=== PATIENT | male | born 1995 | race Caucasian/White ===

== ENCOUNTER 2023-10-20 11:54 | Emergency (ER) | payer SELFPAY ==
[2023-10-20 13:02] VITALS: BP 156/98; PULSE 91; RESP 17; TEMP 37; O2SAT 98; BMI 24.4
[2023-10-20] MEDS: lidocaine 2% viscous 15 mL UDC 10 ML TOPICAL (13:51)
[2023-10-20] MEDS: dexamethasone 10 mg/mL INJ IM (13:51)
[2023-10-20] MEDS: HYDROcodone-acetaminophen 7.5-325 mg Tablet 1 TAB PO (13:51)
--- NOTE | 2023-10-20 13:52 | W.ED.DENTAL ---
HPI - Dental/Oral General: Chief complaint: Dental/Oral Stated complaint: Jaw Pain/Swelling Time Seen by Provider: 10/20/23 13:10 Source: patient Mode of arrival: ambulatory Limitations: no limitations History of Present Illness: Patient is a 28-year-old male presenting to the emergency department complaining of dental pain onset past few days. History of poor dentition, does not see a dentist regularly, states that he has pain to the left lower jaw that is radiating to his left face up towards his left ear. Pain worsens with swallowing, palpation, and cool liquids. No fever, nausea or vomiting, or other symptoms reported at this time. MD Complaint: tooth pain Onset (ago): day(s) Duration: constant Severity: severe Relieving factors: nothing Exacerbating factors: chewing, cold and swallowing Context: history of dental caries and poor dental care Associated symptoms: Reports ear or mastoid pain; Denies fever(s) Treatment prior to arrival: none Related Data Previous Rx's Medication Instructions Recorded amoxicillin 875 mg-potassium 1 tab PO BID 10 days #20 tabs 10/20/23 clavulanate 125 mg tablet lidocaine HCl 2 % mucosal solution 10 ml mucous membrane Q4H PRN pain 10/20/23 (Lidocaine Viscous) #100 mL prednisone 20 mg tablet 60 mg (3 x 20 mg) PO ONCE 5 days 10/20/23 #15 tabs Allergies Allergy/AdvReac Type Severity Reaction Status Date / Time No Known Allergies Allergy Verified 10/20/23 13:04 Review of Systems General: Reports: 10 or more systems reviewed and unremarkable except in HPI and below Const: Denies: fever(s), chills or fatigue Eyes: Denies: change in vision ENMT: Reports: dental pain, ear or mastoid pain and sinus pain Card: Denies: chest pain, palpitations, swelling of feet/ankles or lightheadedness Resp: Denies: dyspnea, productive cough or wheezing GI: Denies: abdominal pain, nausea, vomiting, diarrhea or constipation : Denies: flank pain, difficulty urinating, dysuria or urinary frequency Musc: Denies: neck pain, back pain or joint pain Skin/Breast: Denies: rash Neuro: Denies: headache(s), numbness in extremities or weakness in extremities Physical Exam Const: COMMON NORMALS: no acute distress and no limitations GENERAL APPEARANCE: cooperative, comfortable and well developed ORIENTATION/CONSCIOUSNESS: Yes awake HENMT: COMMON NORMALS: normocephalic, atraumatic and hearing grossly normal bilaterally HEAD & SCALP: normocephalic and atraumatic MOUTH: Normal oral and palatal mucosa present, lip normal and tongue normal TEETH & GINGIVA: Yes abnormal tooth and associated gingiva lower left tender, with associated gingival edema and enamel fractured, Yes multiple restorations and Yes poor dentition Eye: COMMON NORMALS: Equal, round and reactive pupils present, EOMs intact bilaterally and conjunctivae normal CONJUNCTIVA: Yes conjunctivae normal PUPIL: Yes Equal, round and reactive pupils present Neck/C-Spine: COMMON NORMALS: full ROM, supple and no JVD Resp: COMMON NORMALS: normal respiratory effort, No retractions, No use of accessory muscles and clear to auscultation bilaterally AUSCULTATION: clear to auscultation bilaterally Cardio: COMMON NORMALS: no JVD, regular rate, regular rhythm, No clicks present (Cardio), No murmurs present (Cardio) and No rub (Cardio) RATE: regular rate RHYTHM: regular rhythm Extremity: COMMON NORMALS: normal to inspection, full ROM and capillary refill normal Skin: COMMON NORMALS: no rashes or lesions noted GENERAL SKIN EXAM: no rashes or lesions noted Course Vital Signs: Vital signs: Vital Signs Temperature 98.6 F 10/20/23 13:02 Pulse Rate 91 10/20/23 13:02 Respiratory Rate 17 10/20/23 13:02 Blood Pressure 156/98 10/20/23 13:02 Pulse Oximetry 98 10/20/23 13:02 Oxygen Delivery Me thod Room Air 10/20/23 13:02 MDM - Dental/Oral Medical Decision Making Patient presented with clinical signs and symptoms of a dental abscess to the left lower dentition. History of poor dentition and no dental care, we will treat with antibiotics and he is given a shot of steroids here in the emergency department. He is also given 1 [place] tablet for pain relief, and will prescribe viscous lidocaine as well as steroids to take at home along with antibiotics. He is informed to follow-up with dentist for further care, as these teeth will likely need to be pulled. Strict return precautions given. No radiology studies performed this visit Discharge Plan Discharge Patient Disposition: Home Clinical Impression: Dental abscess Fracture of tooth Qualifiers: Encounter type: initial encounter Fracture type: closed Qualified Code(s): S02.5XXA - Fracture of tooth (traumatic), initial encounter for closed fracture Condition: Stable Prescriptions: New amoxicillin-pot clavulanate 875-125 mg tablet 1 tab PO BID 10 Days Qty: 20 0RF Lidocaine Viscous 2 % solution 10 ml mucous membrane Q4H PRN (Reason: pain) Qty: 100 0RF prednisone 20 mg tablet 60 mg PO ONCE 5 Days Qty: 15 0RF Discontinued prednisone 20 mg tablet 40 mg PO DAILY 5 Days Qty: 10 0RF Rx Instructions: start on 08/19/23 amoxicillin-pot clavulanate 875-125 mg tablet 1 tab PO BID Qty: 14 0RF Discharge Orders: Discharge ED (Routine); Ordered 10/20/23 Ordered By: Leif Charles Discharge Diet: Usual diet Discharge Activity: Increase activity as tolerated Patient Instructions: Dental Abscess (ED) Activity Restrictions/Additional Instructions: Antibiotics and steroids as prescribed. Topical lidocaine for pain relief. Tylenol and ibuprofen at home. Please call dentist on Sunday to schedule an appointment. Return with any new or worsening. Coding Level of Care Code ED Information Systems Auditor for Jame Rivera
[2023-10-20 13:58] VITALS: BP 151/96; PULSE 89; RESP 16; TEMP 37; O2SAT 99
== END 2023-10-20 13:59 | disposition home or self-care (01) ==
PROVIDERS: Emergency Provider Physician Assistant
DX: S02.5XXA Fracture of tooth (traumatic), initial encounter for closed fracture (principal); X58.XXXA Exposure to other specified factors, initial encounter
CPT/HCPCS: 96372; 99284; J1100

== ENCOUNTER 2023-10-23 09:33 | Emergency (ER) | payer SELFPAY ==
[2023-10-23 09:52] VITALS: BP 134/96; PULSE 112; TEMP 36.8; O2SAT 97
--- NOTE | 2023-10-23 10:06 | W.ED.SKABFB ---
Documented by User: LANI Jameson 10/23/23 10:23 HPI - Skin/Abscess/Foreign Bdy General: Chief complaint: Skin/Abscess/Foreign Body Stated complaint: possible allergic reaction Time Seen by Provider: 10/23/23 09:34 Source: patient Mode of arrival: ambulatory Limitations: no limitations History of Present Illness: Patient is a 28-year-old male presents to ED today for evaluation of a rash to the left side of his face and concern for possible allergic reaction. Patient was seen in our facility on 10/19 for a dental infection and started on amoxicillin. He states he did have the bothersome tooth pulled yesterday at the dental office. He states he began noticing the rash slightly yesterday but it has significantly worsened today affecting the left side of his face, ear, and tongue. States rash and ear are exquisitely tender. MD complaint: rash Onset (ago): day(s) (yesterday) Tetanus up to date: yes Location: face Severity: severe Severity scale (1-10): 10 Quality: burning and sharp Pain Consistency: constant Relieving factors: none Exacerbating factors: none Context: new medication Associated symptoms: Reports other (ear pain); Deny chills, fever(s), nausea or vomiting Treatments prior to arrival: corticosteroid and antibiotic Related Data Previous Rx's Medication Instructions Recorded amoxicillin 875 mg-potassium 1 tab PO BID 10 days #20 tabs 10/20/23 clavulanate 125 mg tablet lidocaine HCl 2 % mucosal solution 10 ml mucous membrane Q4H PRN pain 10/20/23 (Lidocaine Viscous) #100 mL hydrocodone 5 mg-acetaminophen 325 1 - 2 tab PO .q 4-6 PRN pain #20 10/23/23 mg tablet tabs prednisone 10 mg tablet 60 mg (6 x 10 mg) PO DAILY 5 days 10/23/23 #30 tabs valacyclovir 1 gram tablet 1,000 mg PO Q8H 10 days #30 tabs 10/23/23 Allergies Allergy/AdvReac Type Severity Reaction Status Date / Time No Known Allergies Allergy Verified 10/20/23 13:04 Review of Systems Const: Denies: fever(s), chills, body aches, fatigue or malaise Eyes: Denies: change in vision, blurry vision, photophobia, floaters or seeing flashes ENMT: Reports: ear or mastoid pain and sinus pain; Denies: ear discharge, change in hearing, tinnitus, disequilibrium, nasal discharge or nasal congestion Card: Denies: chest pain Resp: Denies: dyspnea GI: Denies: abdominal pain, nausea, vomiting or diarrhea Musc: Denies: neck pain, back pain, extremity pain or joint pain Skin/Breast: Reports: rash Neuro: Denies: headache(s), numbness in extremities, weakness in extremities or sensory changes Physical Exam Const: COMMON NORMALS: average body habitus, patient oriented x3, no limitations, healthy appearing, alert and well nourished GENERAL APPEARANCE: cooperative and in distress (appears uncomfortable secondary to pain) HENMT: COMMON NORMALS: normocephalic, atraumatic and Normal external nose present HEAD & SCALP: normal to inspection, normocephalic and atraumatic FACE & SINUS: other (vesicular rash involving L face and L EAC) NOSE: Normal external nose present EXTERNAL EAR: Yes other (posterior auricular adenopathy L ear) EXTERNAL AUDITORY CANAL: other (vesicular lesions) TYMPANIC MEMBRANE: TM abnormal MOUTH: lip normal TEETH & GINGIVA: Yes caries and Yes other (dental extraction site appears normal) THROAT: posterior oropharynx normal and tonsils normal Eye: COMMON NORMALS: Equal, round and reactive pupils present and EOMs intact bilaterally GENERAL EYE: appearance normal, both eyes and all related structures and normal light reflex PUPIL: Yes Equal, round and reactive pupils present DIRECT OPHTHALMOSCOPY: Yes normal light reflex Neck/C-Spine: COMMON NORMALS: full ROM and no lymphadenopathy GENERAL: Yes normal visual inspection Resp: COMMON NORMALS: normal respiratory effort and clear to auscultation bilaterally AUSCULTATION: clear to auscultation bilaterally Cardio: COMMON NORMALS: regular rate and regular rhythm RATE: regular rate RHYTHM: regular rhythm Neuro: [place]DE[place] COMA SCALE: document GCS findings [place] coma scale eye opening: Spontaneous [place] coma scale verbal response: Orientated [place] coma scale motor response: Obey commands [place] coma scale total score: 15 COMMON NORMALS: patient oriented x3, CN's II-XII intact bilaterally, moves all extremities, no focal motor deficits and no sensory deficits noted SENSORIUM/ORIENTATION: Yes alert Skin: NARRATIVE SKIN EXAM: 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 Dr. Hale also evaluated patient. Patient will be placed on Valtrex 1g TID daily x 10 days and Prednisone and given pain medications. Will have him follow up with ENT. Return precautions given. Differential Diagnosis Likely herpes zoster Medical Records I reviewed the patient's medical records. 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) Condition: Stable Prescriptions: New valacyclovir 1 gram tablet 1,000 mg PO Q8H 10 Days Qty: 30 0RF prednisone 10 mg tablet 60 mg PO DAILY 5 Days Qty: 30 0RF hydrocodone-acetaminophen 5-325 mg tablet 1 - 2 tab PO .q 4-6 PRN (Reason: pain) Qty: 20 0RF Discontinued prednisone 20 mg tablet 60 mg PO ONCE 5 Days Qty: 15 0RF No Action amoxicillin-pot clavulanate 875-125 mg tablet 1 tab PO BID 10 Days Qty: 20 0RF Lidocaine Viscous 2 % solution 10 ml mucous membrane Q4H PRN (Reason: pain) Qty: 100 0RF Discharge Orders: Discharge ED (Routine); Ordered 10/23/23 Ordered By: Linda Khanna Patient Instructions: Shingles (ED), Opioid Safety, Pain Management Activity Restrictions/Additional Instructions: You were given medications prior to discharge here. You will be due for another dose of your valacyclovir later this evening. You may start your prescription prednisone tomorrow as you are already given today's dose prior to discharge. You may use the pain medications as needed for significant discomfort. Case management should reach out to you this week to help set you up with your follow-up ENT appointment. You may also follow-up with primary care in the meantime. You may return to the emergency department for worsening or uncontrollable pain, worsening rash, severe headache/neck pain, altered mental status, fevers, or any other concerns you may have. Stand Alone Forms: Work/School Release Coding Level of Care Code ED Building Operator for Chg Fwd Documented by User: Tristian Hale DO 10/23/23 12:16 HPI - Skin/Abscess/Foreign Bdy General: Chief complaint: Skin/Abscess/Foreign Body Stated complaint: possible allergic reaction Time Seen by Provider: 10/23/23 09:34 Related Data Previous Rx's Medication Instructions Recorded amoxicillin 875 mg-potassium 1 tab PO BID 10 days #20 tabs 10/20/23 clavulanate 125 mg tablet lidocaine HCl 2 % mucosal solution 10 ml mucous membrane Q4H PRN pain 10/20/23 (Lidocaine Viscous) #100 mL hydrocodone 5 mg-acetaminophen 325 1 - 2 tab PO .q 4-6 PRN pain #20 10/23/23 mg tablet tabs prednisone 10 mg tablet 60 mg (6 x 10 mg) PO DAILY 5 days 10/23/23 #30 tabs valacyclovir 1 gram tablet 1,000 mg PO Q8H 10 days #30 tabs 10/23/23 Allergies Allergy/AdvReac Type Severity Reaction Status Date / Time No Known Allergies Allergy Verified 10/20/23 13:04 Physical Exam Neuro: [place]DE[place] COMA SCALE: document GCS findings [place] coma scale total score: 15 Course Vital Signs: Vital signs: Vital Signs Temperature 98.2 F 10/23/23 09:52 Pulse Rate 93 10/23/23 11:23 Blood Pressure 163/93 10/23/23 11:23 Pulse Oximetry 96 10/23/23 11:23 Oxygen Delivery Me thod Room Air 10/23/23 10:52 MDM - Skin/Abscess/Foreign Bdy Medicial Decision Making 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 Dr. Hale also evaluated patient. Patient will be placed on Valtrex 1g TID daily x 10 days and Prednisone and given pain medications. Will have him follow up with ENT. Return precautions given. Midlevel review. Patient seen in conjunction with Linda Khanna. Agree with assessment patient does have a vesicular rash consistent with varicella specifically Alejandro Sorto syndrome there is vesicles within the ear canal. At this point I believe he can be treated as an outpatient start him on prednisone as well as valacyclovir. 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) Condition: Stable Prescriptions: New valacyclovir 1 gram tablet 1,000 mg PO Q8H 10 Days Qty: 30 0RF prednisone 10 mg tablet 60 mg PO DAILY 5 Days Qty: 30 0RF hydrocodone-acetaminophen 5-325 mg tablet 1 - 2 tab PO .q 4-6 PRN (Reason: pain) Qty: 20 0RF Discontinued prednisone 20 mg tablet 60 mg PO ONCE 5 Days Qty: 15 0RF No Action amoxicillin-pot clavulanate 875-125 mg tablet 1 tab PO BID 10 Days Qty: 20 0RF Lidocaine Viscous 2 % solution 10 ml mucous membrane Q4H PRN (Reason: pain) Qty: 100 0RF Discharge Orders: Discharge ED (Routine); Ordered 10/23/23 Ordered By: Linda Khanna Patient Instructions: Shingles (ED), Opioid Safety, Pain Management Activity Restrictions/Additional Instructions: You were given medications prior to discharge here. You will be due for another dose of your valacyclovir later this evening. You may start your prescription prednisone tomorrow as you are already given today's dose prior to discharge. You may use the pain medications as needed for significant discomfort. Case management should reach out to you this week to help set you up with your follow-up ENT appointment. You may also follow-up with primary care in the meantime. You may return to the emergency department for worsening or uncontrollable pain, worsening rash, severe headache/neck pain, altered mental status, fevers, or any other concerns you may have. Stand Alone Forms: Work/School Release Coding Level of Care Code ED Building Operator for Jame Rivera
[2023-10-23] MEDS: ondansetron 2 mg/ML SDV 2 mL 4 MG IM (10:45)
[2023-10-23] MEDS: predniSONE 20 mg Tablet 70 MG PO (10:47)
[2023-10-23] MEDS: valACYclovir 1,000 mg Tablet 1000 MG PO (10:47)
[2023-10-23] MEDS: morphine 4 mg/mL SDV 1 mL IM (10:50)
[2023-10-23 10:52] VITALS: BP 152/98; PULSE 102; O2SAT 98
[2023-10-23 11:23] VITALS: BP 163/93; PULSE 93; O2SAT 96
--- NOTE | 2023-10-25 07:51 | DCPLANNER ---
faxed referral to [facility] (ent)
== END 2023-10-23 11:24 | disposition home or self-care (01) ==
PROVIDERS: Emergency Provider Physician Assistant
DX: B02.21 Postherpetic geniculate ganglionitis (principal)
CPT/HCPCS: 96372; 99284; J2270; J2405; J7512

== ENCOUNTER 2024-07-31 07:10 | Emergency (ER) | payer SELFPAY ==
[2024-07-31 07:14] VITALS: BP 128/65; PULSE 71; RESP 16; TEMP 36.8; O2SAT 97; BMI 23.7
--- NOTE | 2024-07-31 07:20 | ED_ITS ---
HPI - Nausea/Vomiting/Diarrhea 2 General: Chief complaint: Nausea/Vomiting/Diarrhea Stated complaint: vomitting Time Seen by Provider: 07/31/24 07:14 History of Present Illness: 29-year-old male presents to the emergen cy room complaining of epigastric discomfort pain that began suddenly this morning when he first got up. Patient vomited once he went to work vomited 2 more times he denies any hematemesis or coffee-ground emesis. He has not had any previous episodes of upper GI bleed. Patient does not drink alcohol. No previous abdominal surgeries he still has some mild epigastric discomfort. Denies any recent antibiotics or new medications. Associated nausea: Yes Associated symtoms: Reports nausea; Denies chest pain or dysuria Related Data Previous Rx's ?Medication ?Instructions ?Recorded lidocaine HCl 2 % mucosal solution 10 ml mucous membra ne Q4H PRN pain 10/20/23 (Lidocaine Viscous) #100 mL hydrocodone 5 mg-acetaminophen 325 1 - 2 tab PO .q 4-6 PRN pain #20 10/23/23 mg tablet tabs promethazine 25 mg tablet 25 mg PO Q6H PRN nausea and 07/31/24 vomiting #20 tabs Allergies Allergy/AdvReac Type Severity Reaction Status Date / Time No Known Allergies Allergy Verified 10/20/23 13:04 Review of Systems 2 Const: Denies: fever(s) or chills Card: Denies: chest pain Resp: Denies: dyspnea GI: Reports: abdominal pain, nausea and vomiting; Denies: hematemesis, coffee ground emesis, diarrhea, hematochezia or melena : Denies: dysuria, urinary frequency or urinary urgency Musc: Denies: neck pain or back pain Skin/Breast: Denies: rash Physical Exam 2 Const: GENERAL APPEARANCE: cooperative ORIENTATION/CONSCIOUSNESS: Yes awake, Yes oriented to person, Yes oriented to place and Yes oriented to time HENMT: COMMON NORMALS: normocephalic, atraumatic and hearing grossly normal bilaterally HEAD & SCALP: normocephalic and atraumatic Resp: COMMON NORMALS: normal respiratory effort, No retractions, No use of accessory muscles and clear to auscultation bilaterally AUSCULTATION: clear to auscultation bilaterally Cardio: COMMON NORMALS: regular rate, regular rhythm and No murmurs present (Cardio) RATE: regular rate RHYTHM: regular rhythm GI: COMMON NORMALS: No hepatosplenomegaly present AUSCULTATION: Yes normoactive bowel sounds PALPATION: Yes Tenderness to palpation present (GI) (Nonspecific epigastrium, Lundy's negative), No Guarding due to palpation present (GI) and Yes No hepatosplenomegaly present Extremity: COMMON NORMALS: normal to inspection, capillary refill normal, no clubbing, cyanosis or edema, no calf tenderness and no pedal edema Neuro: SENSORIUM/ORIENTATION: Yes oriented to person, Yes oriented to place and Yes oriented to time Skin: COMMON NORMALS: no rashes or lesions noted GENERAL SKIN EXAM: no rashes or lesions noted Course 2 Vital Signs: Vital signs: Vital Signs Temperature 98.2 F 07/31/24 07:14 Pulse Rate 70 07/31/24 08:35 Respiratory Rate 16 07/31/24 07:14 Blood Pressure 128/65 07/31/24 07:14 Pulse Oximetry 98 07/31/24 08:35 Oxygen Delivery Me thod Room Air 07/31/24 07:14 MDM - Nausea/Vomiting/Diarrhea Medical Decision Making Labs show mild leukocytosis but otherwise are unremarkable. Patient's abdominal exam is benign will discharge home he is feeling better after the IV fluids. Clear good diet for 2 to 3 days advance as tolerated promethazine as needed follow-up as needed. Medical Records I reviewed the patient's medical records. Lab Data I reviewed the patient's lab results. 07/31/24 07:28 07/31/24 07:28 Laboratory Results WBC 12.62 10^3/uL (3.29-11.43) H 07/31/24 07:28 RBC 4.48 10^6/uL (3.85-5.65) 07/31/24 07:28 Hgb 14.20 g/dL (11.27-16.99) 07/31/24 07:28 Hct 43.3 % (37-53) 07/31/24 07:28 MCV 96.7 fl (82-101) 07/31/24 07:28 MCH 31.7 pg (27-33) 07/31/24 07: MCHC 32.8 g/dL (30-55) 07/31/24 07: RDW 12.0 % (12.1-15.1) L 07/31/24 07:28 Plt Count 341 10^3/cmm (157-399) 07/31/24 07:28 MPV 8.6 fL (7.4-10.4) 07/31/24 07: Neut % (Auto) 78.6 % 07/31/24 07: Lymph % (Auto) 15.9 % 07/31/24 07: Ida % (Auto) 4.4 % 07/31/24 07: Eos % (Auto) 0.6 % 07/31/24 07:28 Baso % (Auto) 0.3 % 07/31/24 07:28 Neut # (Auto) 9.92 10^3/uL (1.8-7.7) H 07/31/24 07: Lymph # (Auto) 2.0 10^3/uL (0.8-4.8) 07/31/24 07: Ida # (Auto) 0.6 10^3/uL (0.2-0.9) 07/31/24 07: Eos # (Auto) 0.1 10^3/uL (0.0-0.8) 07/31/24 07: Baso # (Auto) 0.0 10^3/uL (0.0-0.1) 07/31/24 07: Nucleated RBC % (auto) 0 % 07/31/24 07: Nucleated RBCs # 0.0 /100WBC 07/31/24 07:28 Sodium 141 mmol/L (136-145) 07/31/24 07: Potassium 4.2 mmol/L (3.5-5.1) 07/31/24 07: Chloride 104 mmol/L (98-107) 07/31/24 07: Carbon Dioxide 27 mmol/L (22-29) 07/31/24 07:28 Anion Gap 14.2 (5-19) 07/31/24 07: BUN 15 mg/dL (6-20) 07/31/24 07: Creatinine 0.9 mg/dL (0.7-1.2) 07/31/24 07:28 GFR Calculation 99.8 mL/min (90-130) 07/31/24 07: Glucose 99 mg/dL (65-115) 07/31/24 07:28 Calculated Osmolality 293 mOsm/kg (285-295) 07/31/24 07:28 Calcium 9.2 mg/dL (8.5-10.5) 07/31/24 07:28 Total Bilirubin 0.4 mg/dL (0.15-1.2) 07/31/24 07:28 AST 21 U/L (0-40) 07/31/24 07:28 ALT 31 U/L (0-41) 07/31/24 07:28 Alkaline Phosphatase 108 U/L (40-130) 07/31/24 07:28 Total Protein 6.9 g/dL (6.6-8.7) 07/31/24 07:28 Albumin 4.0 g/dL (3.5-5.2) 07/31/24 07: Globulin 2.9 g/dL (1.3-4.6) 07/31/24 07: Lipase 12 U/L (13-60) L 07/31/24 07:28 Urine Color Yellow (Yellow) 07/31/24 08:35 Urine Appearance Clear (CLEAR) 07/31/24 08:35 Urine pH 8.5 (5-7) A 07/31/24 08:35 Ur Specific [place] 1.022 (1.005-1.030) 07/31/24 08:35 Urine Protein Negative (Negative) 07/31/24 08:35 Urine Glucose (UA) Negative (Normal) 07/31/24 08:35 Urine Ketones Negative (Negative) 07/31/24 08:35 Urine Blood Negative (Negative) 07/31/24 08:35 Urine Nitrate Negative (Negative) 07/31/24 08:35 Urine Bilirubin Negative (Negative) 07/31/24 08:35 Urine Urobilinogen 1.0 mg/dL (Negative) 07/31/24 08:35 Ur Leukocyte Esterase Negative (Negative) 07/31/24 08:35 Urine RBC 0-2 /hpf (0-2) 07/31/24 08:35 Urine WBC 0-5 /hpf (0-5) 07/31/24 08:35 Ur Squamous Epith Cells 0-5 /hpf (0-5) 07/31/24 08:35 Amorphous Sediment Not Reportable 07/31/24 08:35 Urine Bacteria None seen /hpf (NONE) 07/31/24 08:35 Hyaline Casts 0-4 /lpf H 07/31/24 08:35 No radiology studies performed this visit Discharge Plan Discharge Patient Disposition: Home Clinical Impression: Gastroenteritis Condition: Stable Prescriptions: New promethazine 25 mg tablet 25 mg PO Q6H PRN (Reason: nausea and vomiting) Qty: 20 0RF No Action Lidocaine Viscous 2 % solution 10 ml mucous membrane Q4H PRN (Reason: pain) Qty: 100 0RF hydrocodone-acetaminophen 5-325 mg tablet 1 - 2 tab PO .q 4-6 PRN (Reason: pain) Qty: 20 0RF Discharge Orders: Discharge ED (Routine); Ordered 07/31/24 Ordered By: Tristian Hale Discharge Diet: Clear Liquid Discharge Activity: Increase activity as tolerated Patient Instructions: Clear Liquid Diet (ED), Gastroenteritis (ED), Opioid Safety, Pain Management Activity Restrictions/Additional Instructions: Thank you for choosing [facility] for your healthcare needs today. It is very important that you follow up as instructed or that you return to the Emergency Department should you have concerns or if your condition changes or worsens in any way. You were seen in the emergency room with complaints of nausea vomiting. Is a very slight elevation in your white count your other labs are otherwise normal. Recommend clear liquid diet for the next 2 to 3 days advance as tolerated you are given promethazine to use as needed this is likely due to gastroenteritis that should be self-limiting. If your symptoms persist follow-up with your primary care doctor Stand Alone Forms: Work/School Release Print Language: Slovak Coding Level of Care Code ED E Business Specialist for Jame Rivera
[2024-07-31] MEDS: prochlorperazine 10 mg/2 mL Inj IVP (07:32)
[2024-07-31] MEDS: sodium chloride 0.9% 1,000 ML 999 ML IV (07:34)
[2024-07-31 07:36] LABS: Basophils % 0.3 %; Eosinophils # 0.1 10^3/uL (0.0-0.8); Eosinophils % 0.6 %; Hematocrit 43.3 % (37-53); Lymphocytes % 15.9 %; Mean Corpuscular HGB Conc 32.8 g/dL (30-55); Mean Corpuscular Hemoglobin 31.7 pg (27-33); Mean Corpuscular Volume 96.7 fl (82-101); Mean Platelet Volume 8.6 fL (7.4-10.4); Monocytes # 0.6 10^3/uL (0.2-0.9); Monocytes % 4.4 %; Neutrophils # 9.92 10^3/uL (1.8-7.7); Neutrophils % 78.6 %; Nucleated Red Blood Cells % 0 %; Platelet Count 341 10^3/cmm (157-399); Red Blood Count 4.48 10^6/uL (3.85-5.65); White Blood Count 12.62 10^3/uL (3.29-11.43)
[2024-07-31 07:53] LABS: Alanine Aminotransferase 31 U/L (0-41); Alkaline Phosphatase 108 U/L (40-130); Anion Gap 14.2 (5-19); Aspartate Amino Transferase 21 U/L (0-40); Blood Urea Nitrogen 15 mg/dL (6-20); Calcium 9.2 mg/dL (8.5-10.5); Carbon Dioxide 27 mmol/L (22-29); Chloride 104 mmol/L (98-107); Globulin 2.9 g/dL (1.3-4.6); Glomerular Filtration Rate 99.8 mL/min (90-130); Glucose 99 mg/dL (65-115); Lipase 12 U/L (13-60); Osmolality Calculated 293 mOsm/kg (285-295); Potassium 4.2 mmol/L (3.5-5.1); Sodium 141 mmol/L (136-145); Total Bilirubin 0.4 mg/dL (0.15-1.2); Total Protein 6.9 g/dL (6.6-8.7)
[2024-07-31 08:35] VITALS: PULSE 70; O2SAT 98
[2024-07-31 08:41] LABS: Bilirubin Urine Negative (Negative); Blood Urine Negative (Negative); Glucose Urine UA Negative (Normal); Ketones Urine Negative (Negative); Leukocyte Esterase Urine Negative (Negative); Nitrate Urine Negative (Negative); Protein Urine Negative (Negative); Specific Gravity, Urine 1.022 (1.005-1.030); Urine Appearance Clear (CLEAR); Urine Color Yellow (Yellow); pH Urine 8.5 (5-7)
[2024-07-31 08:43] LABS: Add Urine Microscopic? YES; Bacteria Urine None Seen /hpf; Hyaline Casts Urine 0-4 /lpf; RBC Urine 0-2 /hpf (0-2); Squamous Epithelial Cell Urine 0-5 /hpf (0-5); WBC Urine 0-5 /hpf (0-5)
[2024-07-31 09:12] VITALS: BP 128/66; PULSE 80; O2SAT 98
== END 2024-07-31 09:13 | disposition home or self-care (01) ==
PROVIDERS: Emergency Provider Family Medicine
DX: K52.9 Noninfective gastroenteritis and colitis, unspecified (principal)
CPT/HCPCS: 36415; 80053; 81001; 83690; 85025; 96361; 96374; 99284; J0780; J7030

== ENCOUNTER 2025-02-18 11:50 | Emergency (ER) | payer BC, SELFPAY ==
[2025-02-18 11:54] VITALS: BP 115/73; PULSE 110; RESP 14; TEMP 36.4; O2SAT 98
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
--- NOTE | 2025-02-18 13:28 | PC.NURSE ---
Dr. Hale gave verbal order for work note from 01/03.
[2025-02-18 13:29] VITALS: BP 140/82; PULSE 90; O2SAT 99
== END 2025-02-18 13:34 | disposition home or self-care (01) ==
PROVIDERS: Emergency Provider Family Medicine
DX: Z04.1 Encounter for examination and observation following transport accident (principal)
CPT/HCPCS: 70450; 99284